=== PATIENT | male | born 1970 | race American Indian/Alaskan Native ===

== ENCOUNTER 2017-01-31 12:07 | Emergency (ER) | payer MEDICAID, OTHER ==
[2017-01-31 12:54] VITALS: BMI 27.8
[2017-01-31 12:56] VITALS: TEMP 99.2; O2SAT 99
[2017-01-31] MEDS ORDERED: Sodium Chloride 0.9% 500 ML IV STA (13:38)
--- NOTE | 2017-01-31 13:52 | ED PDOC ---
Arrival/HPI - General Chief Complaint: Dizziness/Lightheaded Time Seen by Provider: 01/31/17 13:27 Historian: Patient - History of Present Illness Narrative History of Present Illness (Text): 01/31/17 13:52 A 46 year old male presents to the emergency department complaining of one week history of intermittent dizziness and nausea. Reports worse with certain movements. Denies any vomiting, headache, head trauma, chest pain, palpitations , shortness of breath or any other complaints at this time. Denies smoking and drinking. PMD: Dr. Butcher Time/Duration: 1 week Symptom Onset: Sudden Symptom Course: Unchanged Activities at Onset: Rest Context: Home Associated Symptoms (Text): 01/31/17 14:27 1 week history of intermittent dizziness and nausea. Associated with certain movements. No head trauma. No headache. No weakness. No numbness tingling or paresthesias. No chest pain palpitations or dyspnea. No vomiting. Past Medical History - Provider Review Nursing Documentation Reviewed: Yes - Infectious Disease Hx of Infectious Diseases: None - Cardiac Hx Hypertension: Yes Hx Pacemaker: No - Pulmonary Hx Respiratory Disorders: Yes Hx Asthma: Yes - Neurological Hx Paralysis: No - HEENT Hx HEENT Disorder: No - Renal Hx Renal Disorder: No - Endocrine/Metabolic Hx Endocrine Disorders: Yes Hx Diabetes Mellitus Type 2: Yes - Hematological/Oncological Hx Blood Transfusions: No - Integumentary Hx Dermatological Disorder: No Other/Comment: multiple skin discolorations ble and +2 pitting edema - Musculoskeletal/Rheumatological Hx Musculoskeletal Disorders: No - Gastrointestinal Hx Gastrointestinal Disorders: No - Genitourinary/Gynecological Hx Genitourinary Disorders: No - Psychiatric Hx Emotional Abuse: No Hx Physical Abuse: No Hx Substance Use: No - Surgical History Hx Cardiac Catheterization: Yes - Anesthesia Hx Anesthesia: Yes Hx Anesthesia Reactions: No Hx Malignant Hyperthermia: No - Suicidal Assessment Feels Threatened In Home Enviroment: No Family/Social History - Physician Review Nursing Documentation Reviewed: Yes Family/Social History: No Known Family HX Smoking Status: Never Smoked Hx Alcohol Use: Yes (PAST ETOH;NONE SINCE 12/02/15) Hx Substance Use: No Allergies/Home Meds Allergies/Adverse Reactions: Allergies No Known Allergies Allergy (Verified 11/27/15 14:26) Home Medications: Home Meds Medication Instructions Recorded Confirmed Albuterol HFA [Ventolin HFA 90 1 inh INH PRN PRN 11/27/15 01/31/17 mcg/actuation (8 g)] Potassium Chloride [Klor-Con 10 meq PO DAILY 11/27/15 01/31/17 Sprinkle] Pravastatin Sodium 40 mg PO HS 11/27/15 01/31/17 metFORMIN [glucOPHAGE] 850 mg PO DAILY 11/27/15 01/31/17 Omeprazole 20 mg PO DAILY 12/17/15 01/31/17 Review of Systems - Physician Review All systems were reviewed & negative as marked: Yes - Review of Systems Constitutional: Normal Respiratory: absent: SOB Cardiovascular: absent: Chest Pain, Palpitations Gastrointestinal: Nausea. absent: Abdominal Pain, Diarrhea, Vomiting Neurological: Dizziness. absent: Headache, Focal Weakness, Gait Changes Physical Exam Vital Signs Reviewed: Yes Vital Signs Temp Pulse Resp BP Pulse Ox 01/31/17 12:56 99.2 F 89 18 141/89 99 Temperature: Afebrile Blood Pressure: Normal Pulse: Regular Respiratory Rate: Normal Appearance: Positive for: Well-Appearing, Non-Toxic, Comfortable Pain Distress: None Mental Status: Positive for: Alert and Oriented X 3 - Systems Exam Head: Present: Atraumatic, Normocephalic Pupils: Present: PERRL Extroacular Muscles: Present: EOMI Conjunctiva: Present: Normal Ears: Present: NORMAL TM, Normal Canal. No: Erythema Mouth: Present: Moist Mucous Membranes Pharnyx: No: ERYTHEMA, EXUDATE, TONSILS ENLARGED Neck: Present: Normal Range of Motion Respiratory/Chest: Present: Clear to Auscultation, Good Air Exchange. No: Respiratory Distress, Accessory Muscle Use Cardiovascular: Present: Regular Rate and Rhythm, Normal S1, S2. No: Murmurs Abdomen: Present: Normal Bowel Sounds. No: Tenderness, Distention, Peritoneal Signs Back: Present: Normal Inspection Upper Extremity: Present: Normal Inspection. No: Cyanosis, Edema Lower Extremity: Present: Normal Inspection. No: Edema Neurological: Present: GCS=15, CN II-XII Intact, Speech Normal, Motor Func Grossly Intact, Normal Sensory Function, Normal Cerebellar Funct, Gait Normal, Memory Normal Skin: Present: Warm, Dry, Normal Color. No: Rashes Psychiatric: Present: Alert, Oriented x 3, Normal Insight, Normal Concentration Medical Decision Making ED Course and Treatment: 01/31/17 13:50 Impression: A 46 year old male with dizziness and nausea. Plan: -- EKG -- CT head -- labs -- Antivert, IV fluids, Zofran -- Reassess and disposition Prior Visits: Notes and results from previous visits were reviewed. Patient last reported to the emergency department on 11/27/15 for evaluation of dyspnea on exertion and bilateral pitting edema. Patient was admitted to [facility] under hospitalist service. Progress Notes: 01/31/17 14:28 EKG shows normal sinus rhythm rate approximately [address] or T-wave changes 01/31/17 14:29 CT HEAD WITHOUT CONTRAST Creator : Jesse Nicolas MD IMPRESSION: Normal CT of the Head. 01/31/17 16:[address] scan of the head is unrevealing. Patient will be discharged with Zofran and Antivert to follow-up with PMD. Follow-up in the ER as needed. - Lab Interpretations Lab Results: 01/31/17 14:30 01/31/17 14:30 Lab Results 01/31/17 14:30: Sodium 142, Potassium 4.1, Chloride 107, Carbon Dioxide 25, Anion Gap 14, BUN 17, Creatinine 1.2, Est GFR ( Amer) > 60, Est GFR (Non- Af Amer) > 60, Random Glucose 102, Calcium 9.4, Magnesium 2.0, Total Bilirubin 0.5, AST 35, ALT 52, Alkaline Phosphatase 56, Lactate Dehydrogenase 782 H, Total Creatine Kinase 225, Troponin I < 0.01 D, Total Protein 7.4, Albumin 3.9 , Globulin 3.5, Albumin/Globulin Ratio 1.1 01/31/17 14:30: WBC 5.4, RBC 4.14, Hgb 12.1 L, Hct 35.2 L, MCV 85.0, MCH 29.2, MCHC 34.4, RDW 12.7, Plt Count 224, MPV 9.0, Gran % 53.0, Lymph % (Auto) 30.0, [place] % (Auto) 15.7 H, Eos % (Auto) 0.9 L, Baso % (Auto) 0.4, Gran # 2.84, Lymph # 1.6, [place] # 0.8 H, Eos # 0.1, Baso # 0.02 I have reviewed the lab results: Yes - RAD Interpretation Radiology Orders: 01/31/17 13:38 HEAD W/O CONTRAST [CT] Stat - EKG Interpretation Interpreted by ED Physician: Yes Type: 12 lead EKG - Medication Orders Current Medication Orders: Discontinued Medications Sodium Chloride (Sodium Chloride 0.9%) 500 mls @ 1,000 mls/hr IV .Q30M STA Stop: 01/31/17 14:07 Last Admin: 01/31/17 14:30 Dose: 1,000 mls/hr Meclizine HCl (Antivert) 25 mg PO ONCE ONE Stop: 01/31/17 13:40 Last Admin: 01/31/17 14:28 Dose: 25 mg Ondansetron HCl (Zofran Inj) 4 mg IVP ONCE ONE Stop: 01/31/17 13:40 Last Admin: 01/31/17 14:29 Dose: 4 mg - Scribe Statement The provider has reviewed the documentation as recorded by the Max Payne Provider Scribe Attestation: All medical record entries made by the Max were at my direction and personally dictated by me. I have reviewed the chart and agree that the record accurately reflects my personal performance of the history, physical exam, medical decision making, and the department course for this patient. I have also personally directed, reviewed, and agree with the discharge instructions and disposition. Disposition/Present on Arrival - Present on Arrival Any Indicators Present on Arrival: No History of DVT/PE: No History of Uncontrolled Diabetes: No Urinary Catheter: No History of Decub. Ulcer: No History Surgical Site Infection Following: None - Disposition Have Diagnosis and Disposition been Completed?: Yes Diagnosis: Dizziness Disposition: HOME/ ROUTINE Disposition Time: 16:47 Patient Plan: Discharge Condition: GOOD Discharge Instructions (ExitCare): Vertigo (ED), Dizziness (ED) Prescriptions: Meclizine [Meclizine*] 25 mg PO Q6 #20 tab Ondansetron [Zofran Odt] 4 mg SL Q6 #20 odt Referrals: Db Butcher [Primary Care Provider] - Follow up with primary
--- NOTE | 2017-01-31 14:27 | CT ---
PROCEDURE: CT HEAD WITHOUT CONTRAST. HISTORY: dizzy COMPARISON: None available. TECHNIQUE: Axial computed tomography images were obtained through the head/brain without intravenous contrast. Radiation dose: Total exam DLP = 846 mGy-cm. This CT exam was performed using one or more of the following dose reduction techniques: Automated exposure control, adjustment of the mA and/or kV according to patient size, and/or use of iterative reconstruction technique. FINDINGS: HEMORRHAGE: No intracranial hemorrhage. BRAIN: No mass effect or edema. No atrophy or chronic microvascular ischemic changes. VENTRICLES: Unremarkable. No hydrocephalus. CALVARIUM: Unremarkable. PARANASAL SINUSES: Unremarkable as visualized. No significant inflammatory changes. MASTOID AIR CELLS: Unremarkable as visualized. No inflammatory changes. OTHER FINDINGS: None. IMPRESSION: Normal CT of the Head.
[2017-01-31 15:30] LABS: BASO # 0.02 K/mm3 (0.0-2.0); BASO % 0.4 % (0.0-3.0); EOS # 0.1 (0.0-0.7); EOS % 0.9 % (1.5-5.0); GRAN # 2.84 (1.4-6.5); HEMOGLOBIN 12.1 gm/dL (14.0-18.0); LYMPH # 1.6 (1.2-3.4); MEAN CORPUSCULAR HEMOGLOBIN 29.2 pg (25.0-35.0); MEAN CORPUSCULAR HGB CONC 34.4 g/dl (31.0-37.0); MONO # 0.8 (0.1-0.6); MONO % 15.7 % (1.0-6.0); PLATELET COUNT 224 10^3/uL (120.0-450.0); RBC 4.14 10^6/uL (3.5-6.1); RED CELL DISTRIBUTION WIDTH 12.7 % (11.5-14.5); WHITE BLOOD COUNT 5.4 10^3/ul (4.5-11.0)
[2017-01-31 15:49] LABS: ALB/GLOB RATIO 1.1 (1.1-1.8); ALBUMIN 3.9 g/dL (3.0-4.8); ALT/SGPT 52 U/L (7-56); AST/SGOT 35 U/L (15-59); BLOOD UREA NITROGEN 17 mg/dL (7-21); CALCIUM 9.4 mg/dL (8.4-10.5); GFR AFRICAN-AMERICAN > 60; GFR NON-AFRICAN AMERICAN > 60
[2017-01-31 16:26] LABS: TROPONIN I < 0.01 ng/mL
[2017-01-31 16:57] VITALS: BP 176/90; PULSE 86; RESP 16
--- NOTE | 2017-01-31 20:40 | CARD ---
APPROVED REPORT EKG Measurement Heart [id number] <Conclusion> Normal sinus rhythm Normal ECG
== END 2017-01-31 17:25 | disposition home or self-care (01) ==
LOC: ED 12:07
DX: R42 Dizziness and giddiness (principal); I10 Essential (primary) hypertension; E11.9 Type 2 diabetes mellitus without complications
CPT/HCPCS: 70450; 80053; 82550; 83615; 83735; 84484; 85025; 93005; 96361; 96374; 99285; J2405; J7040